=== PATIENT | female | born 1950 | race Caucasian/White ===

== ENCOUNTER 2017-11-16 14:41 | Emergency (ER) | payer OTHER ==
[~2017-11-16] VITALS: Ht 167.6 cm; Wt 70.3 kg
[~2017-11-16 14:41] MED LIST: AVALIDE 150-12.1 TA1 PO; [UNRECOGNIZED DRUG - OTHER]
[2017-11-16] MEDS ORDERED: ZOCOR20 MG PO (15:29)
[2017-11-16] MEDS ORDERED: LOSARTAN-HCTZ1 EACH PO (15:30)
[2017-11-16] MEDS ORDERED: GLIMEPIRIDE2 MG PO (15:30)
== END 2017-11-16 19:34 | disposition home or self-care (01) ==
LOC: ER
DX: J11.1 Influenza due to unidentified influenza virus with other respiratory manifestations (principal)

== ENCOUNTER 2024-08-31 12:52 | Emergency (ER) | payer OTHER ==
[~2024-08-31] VITALS: Ht 167.6 cm; Wt 62.1 kg
[~2024-08-31 12:52] MED LIST changes: +GLIMEPIRIDE2 MG PO; +LOSARTAN-HCTZ1 EACH PO; +ZOCOR20 MG PO
[2024-08-31] MEDS ORDERED: GUAIFEN/DEXTROMETHORPHAN/PE 10 ML BLIST.PACK PO ONE ×2 (13:45→14:00)
[2024-08-31 14:33] LABS: HEMATOCRIT 46.6 % (36.0-45.00); HEMOGLOBIN 15.8 g/dL (12.0-15.00); MEAN CELL VOLUME 84.1 fL (80.00-100.00); MEAN CORPUSCULAR HEMOGLOBIN 28.4 pg (27.00-32.0); MEAN CORPUSCULAR HGB CONC 33.8 g/dl (32.0-36.0); PLATELET COUNT 198 K/uL (150-450); RED BLOOD COUNT 5.55 M/uL (4.00-6.00); RED CELL DISTRIBUTION WIDTH 14.5 % (11.5-14.5)
[2024-08-31] MEDS ORDERED: ZITHROMAX TRI-500 MG PO (16:09)
[2024-08-31] MEDS ORDERED: GILTUSS COUGH-118 M1 PO (16:09)
== END 2024-08-31 16:13 | disposition home or self-care (01) ==
LOC: ER 12:52
PROVIDERS: Preventive Medicine Public Health & General Preventive Medicine
DX: J06.9 Acute upper respiratory infection, unspecified (principal); I10 Essential (primary) hypertension; E78.49 Other hyperlipidemia; Z20.822 Contact with and (suspected) exposure to COVID-19